=== PATIENT | female | born 2000 | race Caucasian/White ===

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

== ENCOUNTER 2021-01-21 13:07 | Emergency (ER) | payer MEDICAID ==
[~2021-01-21] VITALS: Ht 167.6 cm; Wt 83.3 kg
[2021-01-21 14:00] LABS: BASOPHILS % (AUTO) 0.5 % (0-1); EOSINOPHILS % (AUTO) 0.2 % (0-6); HEMATOCRIT 40.3 % (35.0-45.0); HEMOGLOBIN 13.7 g/dl (12.0-16.0); LYMPHOCYTES # (AUTO) 2.5 X10'3 (1.1-4.8); LYMPHOCYTES % (AUTO) 26.8 % (21-51); MEAN CORPUSCULAR HEMOGLOBIN 30.4 PG (27.0-31.0); MEAN CORPUSCULAR VOLUME 89.5 FL (78-98); MEAN PLATELET VOLUME 8.1 FL (7.4-10.4); MONOCYTES # (AUTO) 0.5 X10'3 (0-0.9); MONOCYTES % (AUTO) 5.8 % (2-12); NEUTROPHILS # (AUTO) 6.2 X10'3 (1.8-7.7); NEUTROPHILS % (AUTO) 66.7 % (42-75); PLATELET COUNT 347 X10'3 (140-440); WHITE BLOOD COUNT 9.2 X10'3 (4.5-11.0)
[2021-01-21 14:18] LABS: ALANINE AMINOTRANSFERASE 26 U/L (12-78); ALBUMIN 4.3 G/DL (3.4-5.0); ALKALINE PHOSPHATASE 84 IU/L (20-180); AMYLASE 30 U/L (25-115); ANION GAP 13 (8-16); ASPARTATE AMINO TRANSFERASE 13 U/L (10-37); BILIRUBIN,TOTAL 0.4 MG/DL (0.1-1.0); BLOOD UREA NITROGEN 10 MG/DL (7-18); BUN/CREATININE RATIO 13.2 (6.6-38.0); CALCIUM 9.5 MG/DL (8.5-10.1); CHLORIDE 103 MMOL/L (99-107); CREATININE 0.76 MG/DL (0.40-0.90); GLUCOSE 104 MG/DL (70-104); LIPASE 61 U/L (73-393); POTASSIUM 3.9 MMOL/L (3.5-5.1); SODIUM 139 MMOL/L (135-145); TOTAL CARBON DIOXIDE 23.3 MMOL/L (24-32); TOTAL PROTEIN 8.4 G/DL (6.4-8.2); eGFR > 90 ML/MIN
[2021-01-21 15:33] LABS: URINE HCG POSITIVE (NEG)
[2021-01-21 15:47] LABS: CLARITY,URINE CLEAR (Clear); COLOR,URINE YELLOW (Yellow); GLUCOSE, URINE NEGATIVE (Neg); KETONES,URINE >=80 mg/dl (Neg); LEUKOCYTE ESTERASE ,URINE NEGATIVE (Neg); NITRITES, URINE NEGATIVE (Neg); OCCULT BLOOD,URINE NEGATIVE (Neg); PROTEIN,URINE TRACE mg/dl (Neg)
--- NOTE | 2021-01-21 15:53 | NUR ---
glass water given, pt naseous. NICKOLAS Crespo notified
[2021-01-21 15:55] LABS: UA COLLECTION TYPE CLN CATCH MIDSTREAM
[2021-01-21 15:58] LABS: BACTERIA,URINE 2+ /HPF (Neg); MUCUS STRANDS MODERATE /LPF (Neg); RBC,URINE NONE SEEN /HPF (0-2); SQUAMOUS EPITHELIAL CELL,UR MANY /LPF (FEW); WBC,URINE 0-4 /HPF (0-4)
[2021-01-21 17:08] VITALS: BP 125/72
== END 2021-01-21 17:10 | disposition home or self-care (01) ==
LOC: ER 13:07
DX: O21.8 Other vomiting complicating pregnancy (principal); E86.0 Dehydration; Z3A.01 Less than 8 weeks gestation of pregnancy
CPT/HCPCS: 36415; 80053; 81001; 81025; 82150; 83690; 84702; 85025; 99283

== ENCOUNTER 2021-03-12 20:42 | Emergency (ER) | payer MEDICAID ==
[~2021-03-12] VITALS: Ht 167.6 cm; Wt 77.3 kg
[2021-03-12 21:03] VITALS: BP 143/97
== END 2021-03-12 23:25 | disposition home or self-care (01) ==
LOC: ER 20:43
DX: O21.9 Vomiting of pregnancy, unspecified (principal); Z20.822 Contact with and (suspected) exposure to COVID-19; O26.891 Other specified pregnancy related conditions, first trimester; R51.9 Headache, unspecified; Z3A.13 13 weeks gestation of pregnancy
CPT/HCPCS: 87635; 99283; C9803

== ENCOUNTER 2022-07-02 00:11 | Emergency (ER) | payer MEDICAID ==
[~2022-07-02] VITALS: Ht 165.1 cm; Wt 93.2 kg
[2022-07-02 01:43] VITALS: BP 128/87
== END 2022-07-02 04:16 | disposition left against medical advice (07) ==
LOC: ER 00:11
DX: R11.2 Nausea with vomiting, unspecified (principal); R25.2 Cramp and spasm; Z53.21 Procedure and treatment not carried out due to patient leaving prior to being seen by health care provider

== ENCOUNTER 2023-06-28 17:33 | Emergency (ER) | payer MEDICAID ==
[~2023-06-28] VITALS: Ht 162.6 cm; Wt 87.5 kg
[2023-06-28 17:35] VITALS: BP 122/93; PULSE 101; RESP 28; TEMP 98; O2SAT 99
[2023-06-28 17:59] LABS: BILIRUBIN,URINE NEGATIVE (Neg); CLARITY,URINE CLEAR (Clear); COLOR,URINE YELLOW (Yellow); GLUCOSE, URINE NEGATIVE (Neg); KETONES,URINE >=80 mg/dl (Neg); LEUKOCYTE ESTERASE ,URINE NEGATIVE (Neg); NITRITES, URINE NEGATIVE (Neg); OCCULT BLOOD,URINE NEGATIVE (Neg); PH,URINE 5.5 (4.8-8.0); PROTEIN,URINE NEGATIVE (Neg); UROBILINOGEN,URINE 0.2 E.U/dL (0.2-1.0)
[2023-06-28 18:00] LABS: BASOPHILS % (AUTO) 0.3 % (0-1); EOSINOPHILS % (AUTO) 0.1 % (0-6); HEMATOCRIT 37.9 % (35.0-45.0); HEMOGLOBIN 12.9 g/dl (12.0-16.0); LYMPHOCYTES # (AUTO) 1.7 X10'3 (1.1-4.8); LYMPHOCYTES % (AUTO) 12.9 % (21-51); MEAN CORPUSCULAR HEMOGLOBIN 30.3 PG (27.0-31.0); MEAN CORPUSCULAR HGB CONC 33.9 g/dL (33.0-36.5); MEAN CORPUSCULAR VOLUME 89.4 FL (78-98); MEAN PLATELET VOLUME 8.1 FL (7.4-10.4); MONOCYTES # (AUTO) 0.6 X10'3 (0-0.9); MONOCYTES % (AUTO) 4.4 % (2-12); NEUTROPHILS % (AUTO) 82.3 % (42-75); PLATELET COUNT 334 X10'3 (140-440); RED BLOOD COUNT 4.24 X10'6 (4.20-5.60); RED CELL DISTRIBUTION WIDTH 13.8 % (11.5-14.5); WHITE BLOOD COUNT 13.3 X10'3 (4.5-11.0)
[2023-06-28 18:01] LABS: UA COLLECTION TYPE VOIDED; URINE HCG POSITIVE (NEG)
[2023-06-28 18:16] LABS: ALANINE AMINOTRANSFERASE 21 U/L (12-78); ALBUMIN 3.6 G/DL (3.4-5.0); ALBUMIN/GLOBULIN RATIO 0.8 (1.1-1.5); ALKALINE PHOSPHATASE 74 IU/L (46-116); ANION GAP 15 (8-16); ASPARTATE AMINO TRANSFERASE 18 U/L (10-37); BILIRUBIN,TOTAL 0.2 MG/DL (0.1-1.0); BLOOD UREA NITROGEN 6 MG/DL (7-18); BUN/CREATININE RATIO 8.6 (10.0-20.0); CALCIUM 9.5 MG/DL (8.5-10.1); CHLORIDE 101 MMOL/L (99-107); GLUCOSE 111 MG/DL (70-104); LIPASE 26 U/L (16-77); POTASSIUM 3.5 MMOL/L (3.5-5.1); SODIUM 135 MMOL/L (135-145); TOTAL CARBON DIOXIDE 19.5 MMOL/L (24-32); eCRCL 110 ML/MIN; eGFR > 90 ML/MIN
== END 2023-06-28 20:25 | disposition home or self-care (01) ==
LOC: ER 17:33
DX: O26.892 Other specified pregnancy related conditions, second trimester (principal); R10.9 Unspecified abdominal pain; R19.7 Diarrhea, unspecified; Z3A.15 15 weeks gestation of pregnancy
CPT/HCPCS: 36415; 76805; 80053; 81003; 81025; 83690; 85025; 99284

== ENCOUNTER 2023-12-10 07:50 | Outpatient (CLI) | payer MEDICAID | END 2023-12-10 23:59 | disposition home or self-care (01) | LOC: RAD 07:50 | PROVIDERS: ATTEND Physician Assistant | DX: O09.93 Supervision of high risk pregnancy, unspecified, third trimester (principal); Z3A.38 38 weeks gestation of pregnancy | CPT/HCPCS: 76805 ==

== ENCOUNTER 2024-03-01 01:06 | Emergency (ER) | payer MEDICAID ==
[~2024-03-01] VITALS: Ht 167.6 cm; Wt 79.5 kg
[2024-03-01 01:08] VITALS: BP 118/84; PULSE 82; RESP 17; TEMP 98.3; O2SAT 98
[2024-03-01] MEDS ORDERED: penicillin V potassium 500mg tablet PO ONE (01:25)
[2024-03-01] MEDS ORDERED: PENI500T2 PO (01:27)
== END 2024-03-01 03:19 | disposition left against medical advice (07) ==
LOC: ER 01:06
DX: K08.89 Other specified disorders of teeth and supporting structures (principal)
CPT/HCPCS: 99283

== ENCOUNTER 2024-10-01 20:37 | Emergency (ER) | payer MEDICAID ==
[~2024-10-01] VITALS: Ht 167.6 cm; Wt 65.9 kg
[2024-10-01 20:59] VITALS: BP 132/84; PULSE 84; RESP 17; O2SAT 98
[2024-10-01] MEDS ORDERED: HYDR-3686 PO (23:09)
[2024-10-01 23:10] VITALS: TEMP 98.4
== END 2024-10-01 23:12 | disposition home or self-care (01) ==
LOC: ER 20:38
DX: F41.0 Panic disorder [episodic paroxysmal anxiety] (principal); I49.9 Cardiac arrhythmia, unspecified
CPT/HCPCS: 93005; 99283

== ENCOUNTER 2025-02-22 20:22 | Emergency (ER) | payer MEDICAID ==
[~2025-02-22] VITALS: Ht 167.6 cm; Wt 82.2 kg
[2025-02-22 20:30] VITALS: TEMP 98.8
[2025-02-22 21:05] LABS: LEUKOCYTE ESTERASE ,URINE MODERATE (Neg); NITRITES, URINE NEGATIVE (Neg); OCCULT BLOOD,URINE SMALL (Neg); URINE HCG NEGATIVE (NEG)
[2025-02-22 21:07] LABS: UA COLLECTION TYPE CLN CATCH MIDSTREAM
[2025-02-22 21:18] LABS: MUCUS STRANDS MODERATE /LPF (Neg); SQUAMOUS EPITHELIAL CELL,UR MODERATE /LPF (FEW)
[2025-02-22] MEDS ORDERED: DIF150T PO (23:19)
--- NOTE | 2025-02-22 23:20 | Physician Documentation ---
History of Present Illness ~ Chief Complaint: Vaginal pain Stated Complaint: VAGINAL PAIN Time Seen by MD: 22:27 Primary Medical Doctor: [facility] JOSELITO Patient is seen today with complaints of vaginal pruritus and cottage cheeselike white vaginal discharge for the last day or two. Patient states she is currently on an antibiotic regimen. Patient has no other concern or complaint at this time denies any fevers or chills. Medication Reconciliation Allergies: Coded Allergies: No Known Allergies (Unverified , 10/01/24) Past Medical History Past Medical History: No Pertinent History Past Surgical History: no surgical history Smoking Status: Never smoker Alcohol Use: None Drug Use: none Lives with: Family Lives In: Home Review of Systems Constitutional: Denies: chills, fever, weakness Eyes: Denies: pain, blurred vision ENT: Denies: ear pain, nose pain, throat pain, mouth pain Respiratory: Denies: cough, shortness of breath Cardiovascular: Denies: chest pain, palpitations Gastrointestinal: Denies: abdominal pain, nausea, vomiting Genitourinary: Denies: burning, dysuria Female Genitalia: Denies: vaginal discharge, pelvic pain Neurological: Denies: headache, dizziness Musculoskeletal: Denies: pain, swelling Integumentary: Denies: rash, lesions Allergic/Immunologic: Denies: hives, itching Hematologic/Lymphatic: Denies: no symptoms reported Psychiatric: Denies: depression, anxiety Physical Exam Vital Signs: Temperature: 98.8, Source: Oral, Heart Rate: 108, Respiratory Ra te: 16, BP: 122/84, Pulse Oximetry: 98, Weight: 82.200 Oxygen Flow Rate: 0 Physical Exam General: Awake and Alert, no acute distress. HEENT: Conjunctiva pink, Sclera clear, Mucus Membranes moist. Neck: Supple without masses and tenderness. Resp: Unlabored. Lungs clear to auscultation bilaterally. Heart: Regular Rate and rhythm, normal S1 and S2 without murmur, rub or gallop. Abdomen: Soft and non tender no organomegaly Genitourinary: Patient declined genitourinary exam today. Extremities: No cyanosis,clubbing or edema. Skin: Warm and Dry. Progress Results/Orders Results/Orders Completed Orders - FELIX SEGUNDO PAC Fluconazole Tablet (Diflucan Tablet) (02/22/25 23:01) Vital Signs 8/12/25 20:30 Temp 98.8 Pulse 108 Resp 16 B/P (MAP) 122/84 Pulse Ox 98 O2 Flow Rate 0 Laboratory Tests Test 02/22/25 20:34 Urine Specimen Description Cln catch midstream Urine Color Yellow Urine Clarity Clear Urine pH 6.5 Urine Specific [place] 1.015 Urine Protein Negative Urine Glucose (UA) Negative Urine Ketones Trace H Urine Occult Blood Small Urine Nitrite Negative Urine Bilirubin Negative Urine Urobilinogen 1.0 Urine Leukocyte Esterase Moderate H Urine RBC 3-10 Urine WBC 5-10 H Urine Squamous Epithelial Cells Moderate Urine Bacteria Few Urine Mucus Moderate Urine Culture Indicated Indicated Volume Urine Centrifuged 10 ml Urine HCG, Qualitative Negative Urine Comment Microbiology Date/Time Source Procedure Growth Status 02/22/25 21:20 Urine Clean Catch Midstream Urine Culture - Preliminary Culture received. Resulted Medical Decision Making Findings Patient is seen today with complaints of vaginal pruritus and cottage cheeselike white vaginal discharge for the last day or two. Patient states she is currently on an antibiotic regimen. Patient has no other concern or complaint at this time denies any fevers or chills. Patient was given dose of Diflucan 150 mg by mouth in the ED tonight. Prescription of Diflucan 150 mg one tablets sent to patient's pharmacy and patient will follow up with primary care in 3-5 days if no better as needed sooner. Return to ED with any worsening, concerning or changing symptoms. Departure Disposition: 01 HOME / SELF CARE / HOMELESS Impression: Primary Impression: Vulvovaginal candidiasis Condition: Stable Discharge Instructions: Vaginal Yeast Infection, Adult Additional Instructions: Patient was given dose of Diflucan 150 mg by mouth in the ED tonight. Prescription of Diflucan 150 mg one tablets sent to patient's pharmacy and patient will follow up with primary care in 3-5 days if no better as needed sooner. Return to ED with any worsening, concerning or changing symptoms. Referrals: NO PRIMARY CARE PROVIDER (PCP) Prescriptions Fluconazole* (Diflucan*) 150 Mg Tablet 1 TAB PO ONCE for 1 Day, #1 TAB Prov: FELIX SEGUNDO 02/22/25 Signature Scribe Signature: No scribe Attestation: No scribe FELIX SEGUNDO Feb 22, 2025 23:20
[2025-02-22 23:33] VITALS: BP 107/73; PULSE 78; RESP 16; O2SAT 98
== END 2025-02-22 23:34 | disposition home or self-care (01) ==
LOC: ER 20:23
DX: B37.31 Acute candidiasis of vulva and vagina (principal); Z79.899 Other long term (current) drug therapy
CPT/HCPCS: 81001; 81025; 87088; 99283

== ENCOUNTER 2025-06-12 18:32 | Emergency (ER) | payer MEDICAID ==
[~2025-06-12] VITALS: Ht 167.6 cm; Wt 74.1 kg
[2025-06-12 18:34] VITALS: O2SAT 99
--- NOTE | 2025-06-12 20:10 | Physician Documentation ---
History of Present Illness Chief Complaint: Vomiting Stated Complaint: COMPLICATIONS Time Seen by MD: 19:25 Primary Medical Doctor: [facility] HPI Patient presents to the ED with a complaint of nausea vomiting related to last few weeks. She was seen at [facility] a proximally a week ago and received medication prescribed to her to treat her symptoms. States the medication has not been helping complains of intermittent I am not abdominal pain but not currently present. States she has not seen an test engine operator but has not an upcoming appointment nayeli Mcmahon says she typically vomits ten times day. States she does not want IV fluids would rather take medication orally Day of Onset: Jun 12, 2025 Medication Reconciliation Allergies: Coded Allergies: No Known Allergies (Unverified , 10/01/24) Scheduled PRN Metoclopramide Hcl* (Reglan*), 1-2 TAB PO Q6H PRN PRN for nausea/vomiting Past Medical History Past Medical History: No Pertinent History Past Surgical History: no surgical history Smoking Status: Never smoker Alcohol Use: None Drug Use: none Lives with: Family Lives In: Home Review of Systems All Other Systems at this time: Reviewed and Negative ROS As stated above in the HPI, otherwise all systems are reviewed and negative. Physical Exam Vital Signs: Temperature: 98.0, Source: Oral, Heart Rate: 85, Respiratory Rate: 16, BP: 122/68, Pulse Oximetry: 99, Weight: 74.100 Oxygen Flow Rate: 0 Physical Exam General: Alert, no apparent distress. HEENT: PERRL, EOMI, no injection, moist mucous membranes. Neck: Full range of motion. Respiratory: Lungs clear, no respiratory distress. Chest: No accessory muscle use. Cardiovascular: Regular rate and rhythm, no murmurs. Gastrointestinal: Soft, nontender, nondistended. Bowels sounds present. Extremities: Normal range of motion, no deformity. Neurologic: Oriented x4. Psychiatric: Normal mood and affect. Skin: Normal color, warm and dry. No edema, no ecchymosis. Progress Results/Orders Results/Orders Completed Orders - MP MAURICE NP Metoclopramide Tablet (Reglan Tablet) (06/12/25 20:05) Vital Signs 06/12/25 18:34 Temp 98.0 Pulse 85 Resp 16 B/P (MAP) 122/68 Pulse Ox 99 O2 Flow Rate 0 Medical Decision Making Additional information obtaine: old records Findings Suspect this patient is suffering from hyperemesis gravidarum treated with Reglan she reported improved symptoms this time I am going to discharge her for outpatient therapy Differential Dx:Considerations: Gastroenteritis, Urinary tract infection Departure Disposition: HOME / SELF CARE / HOMELESS Impression: Primary Impression: Vomiting Condition: Improved Discharge Instructions: Nausea and Vomiting, Adult Additional Instructions: You for coming to the ED this evening I am glad we are able to help you. I sent more of the medication which alleviated your symptoms tonight, to your pharmacy. Referrals: NO PRIMARY CARE PROVIDER (PCP) Prescriptions Metoclopramide Hcl* (Reglan*) 5 Mg Tablet 1-2 TAB PO Q6H PRN PRN for nausea/vomiting, #30 TAB Prov: MP MAURICE NP 06/12/25 Education Educated: Patient Educated regarding: diagnosis Signature Scribe Signature: k Attestation: Scribed for [facility] . 06/12/25 23:19 MP MAURICE NP Jun 12, 2025 20:10
[2025-06-12] MEDS ORDERED: METO5TAB98 PO (20:39)
[2025-06-12 20:57] VITALS: BP 124/78; PULSE 78; RESP 14; TEMP 98
== END 2025-06-12 20:58 | disposition home or self-care (01) ==
LOC: ER 18:33
DX: R11.10 Vomiting, unspecified (principal)
CPT/HCPCS: 99283